=== PATIENT | female | born 1960 | race Caucasian/White ===

== ENCOUNTER 2023-12-24 15:10 | Emergency (ER) | payer OTHER, SELFPAY ==
[2023-12-24 15:29] VITALS: BP 119/80; PULSE 126; RESP 18; TEMP 37.1; O2SAT 96
--- NOTE | 2023-12-24 15:29 | ED.NAVMDI ---
HPI - Nausea/Vomiting/Diarrhea General Chief complaint: Nausea/Vomiting/Diarrhea Stated complaint: food poising or food allergy Time Seen by Provider: 12/24/23 15:48 Source: patient Mode of arrival: ambulatory Limitations: no limitations History of Present Illness HPI Narrative: 63-year-old female past medical history of leukemia with a bone marrow transplant in 2013 presents emergency department with complaints of nausea, vomiting, diarrhea, headache, and chills for the past several days. 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 She reports she is concerned that she may have eaten something containing avocado. She denies any hematemesis, melena, BRBPR, abdominal pain, dizziness, lightheadedness, fever, chills Pertinent positives and negatives discussed in HPI Related Data Previous Rx's Medication Instructions Recorded ondansetron 4 mg disintegrating 4 mg PO Q8H #20 tabs 12/24/23 tablet Allergies Allergy/AdvReac Type Severity Reaction Status Date / Time avocado Allergy Gastrointestinal Verified 12/24/23 15:29 Upset Review of Systems Review of Systems: Yes all other systems are reviewed and are negative [facility] Social History Social History Advance Directives: No Advance Directives Information Provided: No Physical Exam Vital Signs: Vital Signs: Last Vital Signs Temp 99.2 F 12/24/23 16:12 Pulse 93 12/24/23 18:22 Resp 18 12/24/23 18:22 BP 122/64 12/24/23 18:22 Pulse Ox 97 12/24/23 18:22 O2 Del Method Room Air 12/24/23 18:22 BMI result Body Mass Index 30.0 Nursing notes and vital signs reviewed. GENERAL APPEARANCE: A&0 x 4, generally well appearing, no acute distress HENMT: Normal to inspection, atraumatic, face symmetrical. Normal external ears, nose, and oropharynx clear. EYE: PERRLA, EOM intact, structures appear normal NECK: Supple without lymphadenopathy. No stiffness or restricted ROM. CHEST: Normal to inspection HEART: Tachycardia and regular rhythm, normal S1/S2, no M/R/G LUNGS: LS CTA, moving air well. Able to speak in complete sentences. No crackles, wheezes, or rhonchi auscultated ABDOMEN: Soft, nontender, nondistended. Normal bowel sounds noted BACK: No CVAT, no obvious deformity EXTREMITIES: Moving all extremities without difficulty. No cyanosis, clubbing, or edema. Normal capillary refill. NEUROLOGICAL: Alert and oriented, moving all 4 extremities with equal strength. CN not formally tested but appearing grossly intact. Observed to ambulate with normal gait. Cognition normal SKIN: Warm and dry without any lesions, rash, or visible sores PSYCH: Cooperative, normal affect, normal thought process Course Course Course Narrative: RME:?63 yo female w/ hx of AML in remission x10 yrs, here for eval of headache, N/V/D, chills and epigastric abd pain that began after vomiting. States she thinks she ate avocado yesterday which she is allergic to. Cannot tolerate PO intake. Did not take any OTC medications at home. denies known sick contacts. denies rash, difficulty breathing, throat closing sensation. admits to avocado allergy with reaction of GI upset. denies fever, flank pain, dysuria, hematuria. airway patent. no rashes. controlling secretions and speaking in complete sentences. labs, serology ordered. Full HPI, ROS and PE to be performed by the primary ED provider. Medications Administered Discontinued Medications Generic Name Dose Route Start Last Admin Trade Name Freq PRN Reason Stop Dose Admin Acetaminophen 975 mg 12/24/23 16:21 12/24/23 16:40 Acetaminophen 325 Mg Tablet PO 12/24/23 16:22 Not Given ONCE ONE Sodium Chloride 1,000 mls @ 999 mls/hr 12/24/23 16:30 12/24/23 17:50 Ns IV 12/24/23 17:30 Infused .Q1H1M JOHANNY Infusion Ketorolac Tromethamine 15 mg 12/24/23 17:39 12/24/23 17:52 Ketorolac Tromethamine 15 Mg/Ml Vial IVPUSH 12/24/23 17:40 15 mg ONCE ONE Administration Ondansetron HCl 4 mg 12/24/23 15:31 12/24/23 15:32 Ondansetron Odt 4 Mg Tab.Rapdis TRANSLINGU 12/24/23 15:32 4 mg ONCE ONE Administration Medical Decision Making Medical Decision Making MDM Narrative: Old records reviewed for previous imaging, lab studies, ECGs, and notes. Patient was assessed the emergency department with no acute distress or toxicity noted. Nasal serologies negative for COVID, flu, and RSV. Blood work showing moderately elevated LFTs and BUN, most likely due to vomiting and diarrhea with no evidence leukocytosis or anemia. Tylenol offered for headache and declined as patient did not want to take p.o.. Zofran and IV fluid bolus provided with good relief in symptoms. Repeat heart rate down from 120 so the 90s. Patient tolerated ice chips here in the emergency department with no active vomiting. Zofran sent to patient's preferred pharmacy for further management of symptoms. Patient educated follow-up with an retread supervisor as she is concerned that her nausea, vomiting, diarrhea as a reaction to avocado. Patient is safe for discharge at this time with plan for [id number] Tylenol and/or NSAID such as ibuprofen or naproxen for fever/discomfort with dosing as per packaging. HPI, PE, diagnostics, and plan discussed with patient and family with no unanswered questions at this time. Strict return precautions given to return to the emergency department with new, worsening, or concerning emergent symptoms. Recommended to follow-up with there primary care provider in 24-48 hours for further treatment and management. Differential Diagnosis Differential Diagnoses: The differential diagnosis associated with the presentation includes But not limited to SBO, perforation, gastroenteritis, SBO, perforation, GI bleed, sepsis, malignancy, allergic reaction Lab Data 12/24/23 16:32 12/24/23 16:32 Labs: Lab Results 12/24/23 12/24/23 Range/Units 16:23 16:32 WBC 8.6 (4.8-10.8) X10*3/uL RBC 5.08 (4.20-5.50) X10*6/uL Hgb 14.9 (12.0-16.0) g/dl Hct 44.3 (37.0-47.0) % MCV 87.2 (80.0-98.0) fL MCH 29.3 (27.0-33.0) pg MCHC 33.6 (31.0-35.0) g/dl RDW 14.2 (11.0-16.0) % Plt Count 230 (160-400) X10*3/uL MPV 9.9 (9.4-12.3) fL Immature Gran % (Auto) 0.5 H (0.0-0.4) % Neut % (Auto) 75.8 H (45-73) % Lymph % (Auto) 9.5 L (20-40) % [place] % (Auto) 13.6 H (2-11) % Eos % (Auto) 0.1 (0-4) % Baso % (Auto) 0.5 (0-2) % Lymph # (Auto) 0.8 L (1.2-4.9) X10*3/uL [place] # (Auto) 1.2 (0.1-1.2) X10*3/uL Eos # (Auto) 0.0 (0.0-0.4) X10*3/uL Baso # (Auto) 0.0 (0.0-0.2) X10*3/uL Abs Immat Gran (auto) 0.04 H (0.00-0.03) X10*3/uL Absolute Neuts (auto) 6.5 (2.0-8.3) x10*3/uL Absolute Nucleated RBC 0.000 (0.0-0.012) X10*3/uL Nucleated RBC % (auto) 0.0 (0.0-0.2) /100WBC Sodium 142 (135-145) mmol/L Potassium 4.0 (3.3-5.1) mmol/L Chloride 110 H (96-108) mmol/L Carbon Dioxide 18 L (22-29) mmol/L Anion Gap 18 (12-20) BUN 18 H (9-16) mg/dL Creatinine 1.20 (0.5-1.4) mg/dL Estim Creat Clear Calc 59.8 Estimated GFR 45 Random Glucose 108 (60-115) mg/dL Calcium 9.9 (8.4-10.2) mg/dL Magnesium 1.8 (1.6-2.6) mg/dL Total Bilirubin 0.5 (0.0-1.0) mg/dL AST 44 H (5-31) U/L ALT 45 H (0-31) U/L Alkaline Phosphatase 142 H (39-117) U/L Total Protein 8.2 H (6.5-8.0) g/dL Albumin 4.8 (3.5-5.0) g/dL Influenza Type A (PCR) NEGATIVE (Negative) Influenza Type B (PCR) NEGATIVE (Negative) RSV RNA Qual (PCR) NEGATIVE (Negative) SARS-CoV-2 RNA (RT-PCR) NEGATIVE (Negative) Discharge Plan Discharge Clinical Impression: Gastroenteritis, Dehydration Patient Disposition: Home, Self-Care Instructions: Acute Nausea and Vomiting (ED), Acute Diarrhea (ED) Prescriptions: New ondansetron 4 mg tablet,disintegrating 4 mg PO Q8H Qty: 20 0RF Referrals: [facility] [place] Family Medicine [Provider Group] [facility] [facility] [Provider Group] [facility] [place] [facility] [Provider Group] Stand Alone Forms: Work/School Release Print Language: Armenian
[2023-12-24] MEDS: Ondansetron ODT 4 MG TAB.RAPDIS TRANSLINGU (15:32)
[2023-12-24 16:12] VITALS: BP 119/67; PULSE 122; RESP 16; TEMP 37.3; O2SAT 98
[2023-12-24 16:39] LABS: Basophils Percent Auto 0.5 % (0-2); Eosinophils Percent Auto 0.1 % (0-4); Hematocrit 44.3 % (37.0-47.0); Hemoglobin 14.9 g/dl (12.0-16.0); Imm Gran Abs Auto 0.04 X10*3/uL (0.00-0.03); Imm Gran Pct Auto 0.5 % (0.0-0.4); Lymphocytes Absolute Auto 0.8 X10*3/uL (1.2-4.9); Lymphocytes Percent Auto 9.5 % (20-40); MANUAL DIFF FLAG NO; Mean Corpuscular HGB Conc 33.6 g/dl (31.0-35.0); Mean Corpuscular Hemoglobin 29.3 pg (27.0-33.0); Mean Corpuscular Volume 87.2 fL (80.0-98.0); Mean Platelet Volume 9.9 fL (9.4-12.3); Monocytes Absolute Auto 1.2 X10*3/uL (0.1-1.2); Monocytes Percent Auto 13.6 % (2-11); Neutrophils Absolute Auto 6.5 x10*3/uL (2.0-8.3); Neutrophils Percent Auto 75.8 % (45-73); Platelet Count 230 X10*3/uL (160-400); Red Blood Count 5.08 X10*6/uL (4.20-5.50); Red Cell Distribution Width 14.2 % (11.0-16.0); White Blood Count 8.6 X10*3/uL (4.8-10.8)
[2023-12-24] MEDS: 0.9 % Sodium Chloride 1,000 ML 999 ML IV (16:40)
[2023-12-24 17:04] LABS: Alanine Aminotransferase 45 U/L (0-31); Albumin Level 4.8 g/dL (3.5-5.0); Alkaline Phosphatase 142 U/L (39-117); Anion Gap 18 (12-20); Aspartate Amino Transferase 44 U/L (5-31); Bilirubin Total 0.5 mg/dL (0.0-1.0); Blood Urea Nitrogen 18 mg/dL (9-16); Calcium 9.9 mg/dL (8.4-10.2); Carbon Dioxide 18 mmol/L (22-29); Chloride 110 mmol/L (96-108); Creatinine Clr Calc Pharmacy 59.8; Estimated Glomerular Filt Rate 45; Glucose Random 108 mg/dL (60-115); Magnesium 1.8 mg/dL (1.6-2.6); Sodium 142 mmol/L (135-145); Total Protein 8.2 g/dL (6.5-8.0)
[2023-12-24 17:14] LABS: Influenza A PCR NEGATIVE (Negative); Influenza B PCR NEGATIVE (Negative); Resp Syncy Virus RNA Qual PCR NEGATIVE (Negative); SARS COV2 PCR INHOUSE NEGATIVE (Negative)
[2023-12-24] MEDS: Ketorolac Tromethamine 15 MG/ML VIAL IVPUSH (17:52)
[2023-12-24 18:22] VITALS: BP 122/64; PULSE 93; RESP 18; O2SAT 97
[2023-12-24 19:15] VITALS: BP 122/64; PULSE 93; RESP 18; TEMP 36.9; O2SAT 97
== END 2023-12-24 19:16 | disposition home or self-care (01) ==
PROVIDERS: Physician Assistant Medical; Emergency Provider Emergency Medicine
DX: K52.9 Noninfective gastroenteritis and colitis, unspecified (principal); E86.0 Dehydration; Z85.6 Personal history of leukemia; Z11.52 Encounter for screening for COVID-19; Z20.828 Contact with and (suspected) exposure to other viral communicable diseases
CPT/HCPCS: 0241U; 80053; 83735; 85025; 96361; 96374; 99284; J1885